=== PATIENT | male | born 1995 | race Asian ===

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

== ENCOUNTER 2017-09-08 21:49 | Inpatient (IN) | payer OTHER ==
[2017-09-08 23:16] LABS: ABS Basophils 0 10^3/ul (0-0.2); ABS Eosinophils 0 10^3/ul (0-0.6); ABS Lymphocytes 1.2 10^3/ul (1.0-4.8); ABS Monocytes 0.5 10^3/ul (0-0.8); ABS Neutrophils 5.8 10^3/ul (1.5-7.7); ABS Nucleated RBC 0 10^3/ul; Eosinophil % 0.4 % (0-6); Hematocrit 45 % (42-52); Hemoglobin 15.2 g/dl (14.0-18.0); Lymphocyte % 15.9 % (25-47); Mean Corpuscular HGB Conc 34 g/dl (31-36); Mean Corpuscular Hemoglobin 31 pg (27-31); Mean Corpuscular Volume 93 fL (80-94); Mean Platelet Volume 8 um3 (7.4-10.4); Nucleated Red Blood Cells % 0; Platelet Count 199 10^3/ul (150-450); Red Blood Count 4.87 10^6/ul (4.0-5.4); Red Cell Distribution Width 15 % (10.5-15); White Blood Count 7.5 10^3/ul (3.5-10.8)
[2017-09-08 23:32] LABS: EGFR Non-African American 104.9 (>60)
--- NOTE | 2017-09-09 01:35 | ED ---
Psychiatric Complaint - HPI Summary HPI Summary: Patient presents to the ED with what he states his chest pain which has since resolved. He states he has a history of bipolar disorder. Denies any homicidal thoughts. Endorses suicidal thoughts most recently "10 minutes ago" but states he denies any currently. He is a poor historian and continues to deflect. He denies any alcohol, drug use, smoking. He has a counselor through [place] and takes lithium daily. He has family at bedside. History of hospitalizations for previous suicidal ideation. Denies any self-harm or attempt. Denies any plan at this time. He appears very anxious and fidgety on physical exam - History Of Current Complaint Hx Obtained From: Patient Onset/Duration: Sudden Onset Timing: Constant Severity Initially: Moderate Severity Currently: Moderate Character: Depressed, Anxious Aggravating Factor(s): Recent Stress Alleviating Factor(s): Medication, Counseling Associated Signs And Symptoms: Positive: Negative, Paranoid Behavior Related History: Positive For: Prior Psychiatric Issues Has Suicidal: Reports: Thoughts - Risk Factor(s) Completed Suicide Risk Factors: Male <Jordyn Liu - Last Filed: 09/09/17 01:30> <Saul Genao - Last Filed: 09/09/17 04:41> - History Of Current Complaint Chief Complaint: EDMentalHealth Time Seen by Provider: 09/08/17 22:22 - Allergies/Home Medications Allergies/Adverse Reactions: Allergies Allergy/AdvReac Type Severity Reaction Status Date / Time Penicillins Allergy Rash Verified 09/08/17 21:55 PMH/Surg Hx/FS Hx/Imm Hx Previously Healthy: Yes Endocrine/Hematology History: Denies: Hx Diabetes Cardiovascular History: Denies: Hx Hypertension, Hx Pacemaker/ICD Respiratory History: Denies: Hx Asthma History: Denies: Hx Renal Disease Sensory History: Reports: Hx Contacts or Glasses Denies: Hx Hearing Aid Opthamlomology History: Reports: Hx Contacts or Glasses Psychiatric History: Reports: Hx Anxiety, Hx of Violent Episodes Against Others Denies: Hx Eating Disorder, Hx Panic Disorder - Immunization History Hx Pertussis Vaccination: No Immunizations Up to Date: Unable to Obtain/Confirm Infectious Disease History: No Infectious Disease History: Denies: Traveled Outside the [place] in Last 30 Days - Family History Known Family History: Negative: Cardiac Disease - Social History Occupation: Unemployed, Student Lives: With Family Alcohol Use: None Hx Substance Use: No Substance Use Type: Reports: None, Prescribed Smoking Status (MU): Never Smoked Tobacco <Jordyn Liu Luther - Last Filed: 09/09/17 01:30> Review of Systems Constitutional: Negative Negative: Fever, Chills, Fatigue Eyes: Negative Cardiovascular: Negative Positive: Chest Pain - since resolved. Negative: Palpitations Negative: Shortness Of Breath, Cough Negative: Abdominal Pain, Vomiting, Diarrhea, Nausea Positive: see HPI. Negative: burning, dysuria Negative: Arthralgia, Myalgia Skin: Negative Negative: Headache, Weakness, Paresthesia Positive: Anxious, Other - bipolar symptoms All Other Systems Reviewed And Are Negative: Yes <Jordyn Liu Luther - Last Filed: 09/09/17 01:30> Physical Exam Triage Information Reviewed: Yes Vital Signs On Initial Exam: Initial Vitals Temp Pulse Resp BP Pulse Ox 99.9 F 94 18 146/89 100 09/08/17 21:55 09/08/17 21:55 09/08/17 21:55 09/08/17 21:55 09/08/17 21:55 Vital Signs Reviewed: Yes Appearance: Positive: Well-Appearing, Well-Nourished Skin: Positive: Warm, Skin Color Reflects Adequate Perfusion Head/Face: Positive: Normal Head/Face Inspection Eyes: Positive: EOMI, CHANDRA, Conjunctiva Clear Neck: Positive: Supple, No Lymphadenopathy Respiratory/Lung Sounds: Positive: Clear to Auscultation, Breath Sounds Present Cardiovascular: Positive: Normal, RRR, Pulses are Symmetrical in both Upper and Lower Extremities Musculoskeletal: Positive: Strength/ROM Intact Neurological: Positive: Normal, Sensory/Motor Intact, Speech Normal Psychiatric: Positive: Anxious - Fidgety and flexing on physical exam <Jordyn Liu Luther - Last Filed: 09/09/17 01:30> Vital Signs On Initial Exam: Initial Vitals Temp Pulse Resp BP Pulse Ox 37.7 C 94 18 146/89 100 09/08/17 21:55 09/08/17 21:55 09/08/17 21:55 09/08/17 21:55 09/08/17 21:55 <Saul Genao - Last Filed: 09/09/17 04:41> Diagnostics - Vital Signs Vital Signs Temp Pulse Resp BP Pulse Ox 02/03/18 21:55 99.9 F 94 18 146/89 100 - Laboratory Lab Results: Lab Results 09/08/17 09/08/17 Range/Units 23:06 23:06 WBC 7.5 (3.5-10.8) 10^3/ul RBC 4.87 (4.0-5.4) 10^6/ul Hgb 15.2 (14.0-18.0) g/dl Hct 45 (42-52) % MCV 93 (80-94) fL MCH 31 (27-31) pg MCHC 34 (31-36) g/dl RDW 15 (10.5-15) % Plt Count 199 (150-450) 10^3/ul MPV 8 (7.4-10.4) um3 Neut % (Auto) 76.5 (38-83) % Lymph % (Auto) 15.9 L (25-47) % Island % (Auto) 6.6 (1-9) % Eos % (Auto) 0.4 (0-6) % Baso % (Auto) 0.6 (0-2) % Absolute Neuts (auto) 5.8 (1.5-7.7) 10^3/ul Absolute Lymphs (auto) 1.2 (1.0-4.8) 10^3/ul Absolute Monos (auto) 0.5 (0-0.8) 10^3/ul Absolute Eos (auto) 0 (0-0.6) 10^3/ul Absolute Basos (auto) 0 (0-0.2) 10^3/ul Absolute Nucleated RBC 0 10^3/ul Nucleated RBC % 0 Sodium 138 (133-145) mmol/L Potassium 3.5 (3.5-5.0) mmol/L Chloride 105 (101-111) mmol/L Carbon Dioxide 24 (22-32) mmol/L Anion Gap 9 (2-11) mmol/L BUN 10 (6-24) mg/dL Creatinine 0.92 (0.67-1.17) mg/dL Est GFR ( Amer) 134.9 (>60) Est GFR (Non-Af Amer) 104.9 (>60) BUN/Creatinine Ratio 10.9 (8-20) Glucose 111 H (70-100) mg/dL Calcium 9.4 (8.6-10.3) mg/dL Total Bilirubin 0.50 (0.2-1.0) mg/dL AST 12 L (13-39) U/L ALT 14 (7-52) U/L Alkaline Phosphatase 75 (34-104) U/L Total Protein 7.3 (6.4-8.9) g/dL Albumin 4.7 (3.2-5.2) g/dL Globulin 2.6 (2-4) g/dL Albumin/Globulin Ratio 1.8 (1-3) TSH 1.62 (0.34-5.60) mcIU/mL Salicylates < 2.50 (<30) mg/dL Acetaminophen < 15 mcg/mL Serum Alcohol < 10 (<10) mg/dL Result Diagrams: 09/08/17 23:06 09/08/17 23:06 Lab Statement: Any lab studies that have been ordered have been reviewed, and results considered in the medical decision making process. <Jordyn Liu - Last Filed: 09/09/17 01:30> - Vital Signs Vital Signs Temp Pulse Resp BP Pulse Ox 09/09/17 03:29 20 09/08/17 21:55 37.7 C 94 18 146/89 100 - Laboratory Lab Results: Lab Results 09/08/17 09/08/17 09/09/17 Range/Units 23:06 23:06 01:25 WBC 7.5 (3.5-10.8) 10^3/ul RBC 4.87 (4.0-5.4) 10^6/ul Hgb 15.2 (14.0-18.0) g/dl Hct 45 (42-52) % MCV 93 (80-94) fL MCH 31 (27-31) pg MCHC 34 (31-36) g/dl RDW 15 (10.5-15) % Plt Count 199 (150-450) 10^3/ul MPV 8 (7.4-10.4) um3 Neut % (Auto) 76.5 (38-83) % Lymph % (Auto) 15.9 L (25-47) % [place] % (Auto) 6.6 (1-9) % Eos % (Auto) 0.4 (0-6) % Baso % (Auto) 0.6 (0-2) % Absolute Neuts (auto) 5.8 (1.5-7.7) 10^3/ul Absolute Lymphs (auto) 1.2 (1.0-4.8) 10^3/ul Absolute Monos (auto) 0.5 (0-0.8) 10^3/ul Absolute Eos (auto) 0 (0-0.6) 10^3/ul Absolute Basos (auto) 0 (0-0.2) 10^3/ul Absolute Nucleated RBC 0 10^3/ul Nucleated RBC % 0 Sodium 138 (133-145) mmol/L Potassium 3.5 (3.5-5.0) mmol/L Chloride 105 (101-111) mmol/L Carbon Dioxide 24 (22-32) mmol/L Anion Gap 9 (2-11) mmol/L BUN 10 (6-24) mg/dL Creatinine 0.92 (0.67-1.17) mg/dL Est GFR ( Amer) 134.9 (>60) Est GFR (Non-Af Amer) 104.9 (>60) BUN/Creatinine Ratio 10.9 (8-20) Glucose 111 H (70-100) mg/dL Calcium 9.4 (8.6-10.3) mg/dL Total Bilirubin 0.50 (0.2-1.0) mg/dL AST 12 L (13-39) U/L ALT 14 (7-52) U/L Alkaline Phosphatase 75 (34-104) U/L Total Protein 7.3 (6.4-8.9) g/dL Albumin 4.7 (3.2-5.2) g/dL Globulin 2.6 (2-4) g/dL Albumin/Globulin Ratio 1.8 (1-3) TSH 1.62 (0.34-5.60) mcIU/mL Urine Color Urine Appearance Urine pH (5-9) Ur Specific [place] (1.010-1.030) Urine Protein (Negative) Urine Ketones (Negative) Urine Blood (Negative) Urine Nitrate (Negative) Urine Bilirubin (Negative) Urine Urobilinogen (Negative) Ur Leukocyte Esterase (Negative) Urine WBC (Auto) (Absent) Urine RBC (Auto) (Absent) Urine Bacteria (Absent) Urine Glucose (Negative) Salicylates < 2.50 (<30) mg/dL Urine Opiates Screen None detected (None Detect) Acetaminophen < 15 mcg/mL Ur Barbiturates Screen None detected (None Detect) Ur Phencyclidine Scrn None detected (None Detect) Ur Amphetamines Screen None detected (None Detect) U Benzodiazepines Scrn None detected (None Detect) [place] 0.20 L (0.6-1.2) mmol/L Urine Cocaine Screen None detected (None Detect) U Cannabinoids Screen None detected (None Detect) Serum Alcohol < 10 (<10) mg/dL 09/09/17 Range/Units 01:25 WBC (3.5-10.8) 10^3/ul RBC (4.0-5.4) 10^6/ul Hgb (14.0-18.0) g/dl Hct (42-52) % MCV (80-94) fL MCH (27-31) pg MCHC (31-36) g/dl RDW (10.5-15) % Plt Count (150-450) 10^3/ul MPV (7.4-10.4) um3 Neut % (Auto) (38-83) % Lymph % (Auto) (25-47) % [place] % (Auto) (1-9) % Eos % (Auto) (0-6) % Baso % (Auto) (0-2) % Absolute Neuts (auto) (1.5-7.7) 10^3/ul Absolute Lymphs (auto) (1.0-4.8) 10^3/ul Absolute Monos (auto) (0-0.8) 10^3/ul Absolute Eos (auto) (0-0.6) 10^3/ul Absolute Basos (auto) (0-0.2) 10^3/ul Absolute Nucleated RBC 10^3/ul Nucleated RBC % Sodium (133-145) mmol/L Potassium (3.5-5.0) mmol/L Chloride (101-111) mmol/L Carbon Dioxide (22-32) mmol/L Anion Gap (2-11) mmol/L BUN (6-24) mg/dL Creatinine (0.67-1.17) mg/dL Est GFR ( Amer) (>60) Est GFR (Non-Af Amer) (>60) BUN/Creatinine Ratio (8-20) Glucose (70-100) mg/dL Calcium (8.6-10.3) mg/dL Total Bilirubin (0.2-1.0) mg/dL AST (13-39) U/L ALT (7-52) U/L Alkaline Phosphatase (34-104) U/L Total Protein (6.4-8.9) g/dL Albumin (3.2-5.2) g/dL Globulin (2-4) g/dL Albumin/Globulin Ratio (1-3) TSH (0.34-5.60) mcIU/mL Urine Color Yellow Urine Appearance Cloudy Urine pH 5.0 (5-9) Ur Specific [place] 1.020 (1.010-1.030) Urine Protein Negative (Negative) Urine Ketones Trace H (Negative) Urine Blood 2+ H (Negative) Urine Nitrate Negative (Negative) Urine Bilirubin Negative (Negative) Urine Urobilinogen Negative (Negative) Ur Leukocyte Esterase Negative (Negative) Urine WBC (Auto) Absent (Absent) Urine RBC (Auto) 1+(3-5/hpf) H (Absent) Urine Bacteria Absent (Absent) Urine Glucose Negative (Negative) Salicylates (<30) mg/dL Urine Opiates Screen (None Detect) Acetaminophen mcg/mL Ur Barbiturates Screen (None Detect) Ur Phencyclidine Scrn (None Detect) Ur Amphetamines Screen (None Detect) U Benzodiazepines Scrn (None Detect) [place] (0.6-1.2) mmol/L Urine Cocaine Screen (None Detect) U Cannabinoids Screen (None Detect) Serum Alcohol (<10) mg/dL Result Diagrams: 09/08/17 23:06 09/08/17 23:06 Lab Statement: Any lab studies that have been ordered have been reviewed, and results considered in the medical decision making process. <Saul Genao - Last Filed: 09/09/17 04:41> Course/Dx - Course Course Of Treatment: Patient is evaluated for chest pain most likely due to an anxiety attack. Patient is asymptomatic currently, but states he had suicidal thoughts approximately 10 minutes ago. Denies any chest pain currently and denies homicidal or suicidal ideations. Denies plan. Family at bedside. He takes lithium daily. He labs and UA obtained and both are unremarkable. He is signed out to Dr. Genao at 2 AM awaiting mental health evaluation. Assessment/Plan: Awaiting MHU evaluation <Jorydn Liu - Last Filed: 09/09/17 01:30> - Course Course Of Treatment: pt accepted for admissino to psychiatric facility for further treatment. MHE appreciated <Saul Genao - Last Filed: 09/09/17 04:41> - Differential Dx/Clinical Impression Provider Diagnosis: Suicidal ideation Discharge <Jordyn Liu - Last Filed: 09/09/17 01:30> <Saul Genao - Last Filed: 09/09/17 04:41> - Discharge Plan Condition: Stable [place] [place]
[2017-09-09 01:47] LABS: Urine Appearance Cloudy; Urine Blood 2+ (Negative); Urine Color Yellow; Urine Ketones Trace (Negative); Urine Protein Negative (Negative); Urine Urobilinogen Negative (Negative)
[2017-09-09] MEDS: LORazepam TAB(*) 1 MG PO PRN (03:29)
[2017-09-09] MEDS ORDERED: Acetaminophen TAB* 325 MG PO PRN (04:05)
[2017-09-09] MEDS ORDERED: Al Hydrox/Mg Hydrox/Simet LIQ* 30 ML UDC PO PRN (04:05)
[2017-09-09] MEDS: Lithium Carbonate TAB* 300 MG PO SCH ×2 (09:18→19:28)
[2017-09-09] MEDS: Vitamin THERAPEUTIC TAB PO SCH (09:18)
--- NOTE | 2017-09-09 19:56 | HP ---
HISTORY AND PHYSICAL: DATE OF ADMISSION: 09/09/17 SOURCE OF INFORMATION: The patient is a poor historian and his mother speaks limited Nigerian. This note is based on review of previous records, admission data, and an interview with the patient. 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 The patient during evaluation presented as disorganized in his thinking and in his behavior and he was admitted on emergency status. CHIEF COMPLAINT: "Severe heart attack!" HISTORY OF PRESENT ILLNESS: The patient relates having diagnosis of bipolar disorder. He had a previous admission here from 10/19/16 to 10/25/16 in a manic state. He was treated with lithium and olanzapine, improved and he was discharged with followup at [facility] with Dr. Janina Varner and he sees Sophie Louis, a therapist in the community. The patient relates that he was doing well until about a week ago when he said he felt "super excited," started sleeping less. He said he felt he could do everything. He thought he was Batman. He had a subjective feeling of his thought racing, of him speaking fast. He said he engaged in spending of money and he became obsessive about his relationship with a female friend from [facility] who is also from [place] and is also a student at [employer]. Over the winter break, he said they grew very close and he assumed they were in a relationship. They were getting along really well. They often spent time together for ice cream, they texted each other constantly and last Sunday he described an interaction with a friend where he asked the friend to go to a concert which would have been today and she replied that she already had a date. He said that left him dumbfounded, crushed and he felt betrayed and he felt like his world was crumbling and at this time he "wanted to ." He said since for the past week, he has not been attending classes regularly and he said this is usually a sign that he is becoming manic again. Yesterday, he complained to his mother who is visiting from [place] that he was having chest pain and he felt that he was probably having heart attack, so his mother again drove him to this hospital with a friend to translate and he was medically evaluated and his symptoms were best explained by anxiety, but he presented as disorganized in his thinking and his behavior, and was as a result given a mental health evaluation and he was admitted on involuntary status. The patient denies that he has ever felt depressed in the past, but he does recall at least 1 previous manic episode last October with insomnia, decreased need for sleep, increased goal directedness, racing thoughts, pressured speech, grandiosity, and involvement in activities with potential for consequences. The patient endorses difficulty with excessive worrying, muscle tension, recurring panic attacks. He denies social anxiety. He denies obsessive thoughts or compulsive rituals. The patient denies substance abuse. PAST PSYCHIATRIC HISTORY: This is his second admission. First admission was here from 10/19/16 to 10/25/16. His outpatient care is at [facility] with Dr. Janina Varner and with therapist, Sophie Louis, in the community. The patient came in on lithium ER 750 mg daily and on Zyprexa 0.625 mg. He explained that Dr. Varner was in the process of weaning him off the olanzapine and had also increased his lithium from 600 to 750 mg daily. SUICIDE/HOMICIDE HISTORY: The patient relates that he has never made any shayy suicide attempt, but around the time of his first admission in the context of relationship not going well, he had thoughts of walking into traffic, but was dissuaded from doing that by a friend. He denies any history of self-injury. Denies any history of violence. PAST MEDICAL HISTORY: He denies any active medical problems, any history of head trauma with loss of consciousness, seizures, or surgeries. ALLERGIES: He is allergic to PENICILLIN. FAMILY HISTORY: The patient denies any family history of psychiatric illnesses or completed suicide. PERSONAL AND SOCIAL HISTORY: He is the only child of Syrian born parents. He lived previously in the from age 6-1/2 to about 11 as his father was doing his at [employer]. His father is a office communication professor in [place] and his mother is a lab teacher at the same university. His mother is here visiting and he believes his father is on his way here. The patient reports a somewhat distant relationship with both his parents, came to [employer] as a freshman to study computer science. He is now a sophomore. He identified as being heterosexual, but denies dating or sexual activity. Relational issues led to this admission. PHYSICAL EXAMINATION GENERAL: He is a thin framed 22-year-old Syrian male, who does not appear to be in any acute physical distress. He is alert, oriented x3. VITAL SIGNS: Admission vital signs; blood pressure is 136/80, pulse is 88, respirations 16, temperature 98.4. HEENT: Head: Atraumatic, normocephalic, symmetrical. Eyes: PERRLA. Tympanic membranes intact. Sclerae anicteric. Conjunctivae clear. NECK: Trachea midline, freely mobile. No cervical lymphadenopathy. No nuchal rigidity. LUNGS: Clear to auscultation bilaterally. HEART: Regular rate and rhythm. S1, S2. No murmurs, gallops, or rubs. BREASTS: No mass or discharge. ABDOMEN: Soft, nontender. No masses, organomegaly, or rebound tenderness. No scars noted. Active bowel sounds in all 4 quadrants. GENITALIA: Exam not performed. RECTAL: Exam not performed. EXTREMITIES: No pain or limitation in the range of movement. Pulses are equal and adequate in all 4 extremities. NEUROLOGIC: Cranial nerves II through XII are intact. Cerebellar function intact. Muscle strength grade 5/5 in all 4 extremities. STRUCTURAL: The patient is examined in both supine and upright positions. No gross AP or lateral asymmetry. Gait and movement are within normal limits. SKIN: Skin texture, turgor, and pigmentation are within normal limits. LABORATORY DATA: On admission, his CBC, complete metabolic panel, urine toxicology screen were within normal limits. Christie level on admission was 0.2. Urinalysis shows trace of protein, 2+ blood, 1+ rbc. MENTAL STATUS EXAMINATION: Finds a thin framed 22-year-old Syrian male with short black hair, who looks younger than stated age. He is adequately groomed, dressed in hospital scrubs. He wears rimmed glasses. He makes fair eye contact. He presents as guarded and superficially cooperative. He complained of difficulty with his memory and often requested his friend to be able to recount recent events. He is noted to be frequently looking over his shoulder and he stops talking when he sees another patient within earshot. He does not exhibit any abnormal psychomotor activity or abnormal movement. Speech is spontaneous, normal rate, rhythm, and volume. He speaks perfect Nigerian without an accent. His speech is not pressured either. He presents as somewhat tangential in his thinking with some grandiose and paranoid delusions. He denies auditory or visual hallucination. He avidly denies suicidal ideation. He endorses passive wish, but he denies active suicidal ideation and he contracts for safety. His insight and judgment are impaired. His impulse control is fair in this setting. He is alert. He is oriented to time, place, person. Attention, memory, and concentration are all poor. Fund of knowledge is adequate. Intelligence is estimated to be in the normal average range. SUMMARY: This is the second inpatient psychiatric admission for this 22-year- old male with history of suicidal ideation, previous diagnosis of bipolar disorder, current outpatient care, who was driven in by his mother to this hospital initially with complaints of anxiety, but on mental health evaluation, he was found to be disorganized in his thinking and his behavior. On interview , he endorses symptoms consistent with surya. He asserts having been compliant with taking his medication, but his lithium level is subtherapeutic at 0.2. He denies any family history of psychiatric illnesses or completed suicide. Stressors include relational issues and academic stress in addition to strained relationships with his parents. DIAGNOSTIC IMPRESSION: 1. Bipolar 1 disorder, manic, severe, with psychotic features. 2. Unspecified anxiety disorder, rule out panic disorder. TREATMENT PLAN: Admit to mental health unit, 15-minute checks, full code status. Legal status is emergency. Initiate comprehensive milieu, individual and group psychotherapeutic support. Medication management will involve increasing the patient's lithium to a more therapeutic range and possibly rethinking the discontinuation of olanzapine given his decompensation was being decreased. Discharge planning will involve coordination of his aftercare with CAT scan and with his therapist in the community. [id number]/[facility] #: [id number] REHANA
[2017-09-10] MEDS: Lithium Carbonate TAB* 300 MG PO SCH ×2 (07:37→22:31)
[2017-09-10] MEDS: Vitamin THERAPEUTIC TAB PO SCH (07:37)
[2017-09-10] MEDS ORDERED: OLANzapine TAB* 2.5 MG PO ONE (13:47)
--- NOTE | 2017-09-10 14:40 | PN ---
Subjective - Subjective Service Type: 79603 Hosp care 25 min moderate complexity Subjective: Patient is religiously preoccupied and tangential. He speaks in monotone and presents with flat affect. He brightens when discussing his major in [employer] and states he likes to "write code" and such. I ask him about restarting olanzapine and he states "I don't knwo what medications work for me because I don't know who to trust." Card Dealer phoned Dr Varner, psychiatrist at [facility] who is out of office today and returns tomorrow. Card Dealer spoke with patient's family friend, Sofia, who serves as welding specialist for parents. She states Estrada was doing well last semester. She states he did not mention multiple recent panic attacks to Dr Varner. She states Estrada's parents are eager to meet with provider and pursue discharge for the patient. Card Dealer encourages her to tell his father to call me or leave his phone number with staff. Objective - Appearance Appearance: Healthy Appearing Dysmorphic Features: No Hygiene: Normal Grooming: Fairly Well Kept - Behavior Psychomotor Activities: Normal Exhibits Abnormal Movement: No - Attitude and Relatedness Attitude and Relatedness: Psychotically Related Eye Contact: Fair - Speech Quality: Unpressured Latencies: Normal Quantity: Terse - Mood Patient's Decription of Mood: "I'm just reading the Bible." - Affect Observed Affect: Expansive Affect Consistent with: Euphoria - Thought Process Patient's Thought Process: Tangential Thought Content: Yes Paranoid Ideation, No Passive Wish, No Suicidal Planning, No Homicidal Ideation - Sensorium Experiencing Hallucinations: No, Sensorium is Clear - denies - Level of Consciousness Level of Consciousness: Alert Orientation: Yes Intact, Yes Orientated to Time, Yes Orientated to Place, Yes Orientated to Person - Impulse Control Impulse Control: Tenuous - Insight and Judgement Insight and Judgement: Poor - Group Participation Particating in Group Activities: No - Medication Management Medication Management Adherence: Yes Assessment - Assessment Merits Inpatient Hospitalization: For Immediate Safety, For Stabilization, Consolidate Improvements, Pending Safe DC Plan Inpatient DSM-IV Dx: unspecified psychotic d/o; Clinical Impression: Second psychiatric hospitalization for 22yo male, sophomore at [employer]. He has been tapering olanzapine and seemingly had a resurgence of psychosis. He merits hospitalization for immediate safety and stabilization. Plan - Plan Treatment Plan: Name: ESTRADA ROSALES Birthdate: 1995 [id number] continue acute intensive psychiatric treatment. Restart olanzapine and continue lithium and lorazepam. obtain lithium level, hgba1c and lipid panel in am. Family meeting scheduled for 09/11 at 3pm for treatment planning. Continued Medication Management: Start Medication Medications: Current Medications Acetaminophen (Tylenol Tab*) 650 mg PO Q4H PRN PRN Reason: PAIN or TEMP > 101 F Al Hydrox/Mg Hydrox/Simethicone (Maalox Plus*) 30 ml PO Q4H PRN PRN Reason: INDIGESTION [place] Carbonate ([place] Carbonate Tab*) 300 mg PO QAM [facility] Last Admin: 09/10/17 07:37 Dose: 300 mg [place] Carbonate ([place] Carbonate Tab*) 450 mg PO BEDTIME [facility] Last Admin: 09/09/17 19:28 Dose: 450 mg Lorazepam (Ativan Tab(*)) 2 mg PO Q6H PRN PRN Reason: ANXIETY/AGITATION Last Admin: 09/09/17 03:29 Dose: 2 mg Multivitamins (Theragran Tab*) 1 tab PO DAILY [facility] Last Admin: 09/10/17 07:37 Dose: 1 tab olanzapine 5mg qhs - Discharge Plan Discharge Plan: Outpatient Follow Up Outpatient Program: Counseling/Psych Services at [place]
[2017-09-10] MEDS ORDERED: OLANzapine TAB* 2.5 MG PO SCH (21:00)
[2017-09-11] MEDS: LORazepam TAB(*) 1 MG PO PRN ×2 (01:40→17:57)
[2017-09-11] MEDS: Vitamin THERAPEUTIC TAB PO SCH (09:18)
[2017-09-11] MEDS: Lithium Carbonate TAB* 300 MG PO SCH ×2 (09:18→20:13)
[2017-09-11] MEDS ORDERED: Lithium Carbonate TAB* 300 MG PO ONE (10:20)
--- NOTE | 2017-09-11 16:20 | PN ---
Subjective - Subjective Service Type: 20275 Hosp care 35 min high complexity Subjective: Scheduling Clerk phoned Dr Varner at [facility] and discussed patient's admission and presentation. She states he c/o weight gain and therefore they attempted slow taper of olanzapine. She agrees with continued treatment with [facility] and suggests Abilify. She also agrees with increase in lithium dose. Family meeting occurred with patient, his parents, local friend/security nurse and BERHANE Lane. Patient reports improved mood and sleep. He explains verbal aggression and hostility from yesterday due to feeling lonely and sad. He is eager to be discharged and tells those present in family meeting that he is at risk for suicide while in the hospital. He states that emotions related to relationships are difficult for him. He also endorses poor sleep habits. Objective - Appearance Appearance: Healthy Appearing Dysmorphic Features: No Hygiene: Normal Grooming: Well Kept - Behavior Psychomotor Activities: Normal Exhibits Abnormal Movement: No - Attitude and Relatedness Attitude and Relatedness: Manipulative Eye Contact: Fair - Speech Quality: Unpressured Latencies: Normal Quantity: Appropriate - Mood Patient's Decription of Mood: "better" - Affect Observed Affect: Constricted Affect Consistent with: Euthymia - Thought Process Patient's Thought Process: Circumstantial Thought Content: No Passive Wish, No Suicidal Planning, No Homicidal Ideation, No Paranoid Ideation - Sensorium Experiencing Hallucinations: No, Sensorium is Clear Type of Hallucinations: Visual: No, Auditory: No, Command: No - Level of Consciousness Level of Consciousness: Alert Orientation: Yes Intact, Yes Orientated to Time, Yes Orientated to Place, Yes Orientated to Person - Impulse Control Impulse Control: Tenuous - Insight and Judgement Insight and Judgement: Fair - Group Participation Particating in Group Activities: Yes - Medication Management Medication Management Adherence: Yes Assessment - Assessment Merits Inpatient Hospitalization: For Immediate Safety, For Stabilization, Consolidate Improvements Inpatient DSM-IV Dx: bipolar I d/o, most recent episode manic Clinical Impression: Second psychiatric hospitalization for 22yo male, sophomore at [employer]. He has been tapering olanzapine and seemingly had a resurgence of psychosis. He merits hospitalization for immediate safety and stabilization. Plan - Plan Treatment Plan: Name: STEVE ROSALES Birthdate: 1995 [id number] continue acute intensive psychiatric treatment. Restart olanzapine and continue lithium and lorazepam. obtain lithium level, hgba1c and lipid panel in am. Family meeting scheduled for 09/11 at 3pm for treatment planning. Continued Medication Management: Different Medication Medications: Current Medications Acetaminophen (Tylenol Tab*) 650 mg PO Q4H PRN PRN Reason: PAIN or TEMP > 101 F Al Hydrox/Mg Hydrox/Simethicone (Maalox Plus*) 30 ml PO Q4H PRN PRN Reason: INDIGESTION Aripiprazole (Abilify Tab*) 5 mg PO BEDTIME [facility] Diphenhydramine HCl (Benadryl Po*) 50 mg PO BEDTIME [facility] [place] Carbonate ([place] Carbonate Tab*) 450 mg PO BEDTIME [facility] Last Admin: 09/10/17 22:31 Dose: 450 mg [place] Carbonate ([place] Carbonate Tab*) 600 mg PO QAM [facility] Lorazepam (Ativan Tab(*)) 2 mg PO Q6H PRN PRN Reason: ANXIETY/AGITATION Last Admin: 09/11/17 01:40 Dose: 2 mg Multivitamins (Theragran Tab*) 1 tab PO DAILY [facility] Last Admin: 09/11/17 09:18 Dose: 1 tab - Discharge Plan Discharge Plan: Outpatient Follow Up Outpatient Program: Counseling/Psych Services at [place]
[2017-09-11] MEDS: diPHENhydraMINE PO* 50 MG PO SCH (20:11)
[2017-09-11] MEDS ORDERED: ARIPiprazole TAB* 5 MG PO SCH (21:00)
[2017-09-12] MEDS: Vitamin THERAPEUTIC TAB PO SCH (08:14)
[2017-09-12] MEDS: Lithium Carbonate TAB* 300 MG PO SCH ×2 (08:14→20:20)
[2017-09-12] MEDS: LORazepam TAB(*) 1 MG PO PRN (08:29)
[2017-09-12] MEDS: ARIPiprazole TAB* 5 MG PO SCH ×2 (12:04→20:20)
--- NOTE | 2017-09-12 13:23 | PN ---
Subjective - Subjective Service Type: 03610 Hosp care 25 min moderate complexity Subjective: Patient reports improved mood and sleep. He continues to exhibit disorganized thinking and obsession about relationships. His parents report he does not appear baseline as of yet. Patient agrees to increase in abilify. He is utilizing lorazepam often and reports this is efficacious. Objective - Appearance Appearance: Healthy Appearing Dysmorphic Features: No Hygiene: Normal Grooming: Well Kept - Behavior Psychomotor Activities: Normal Exhibits Abnormal Movement: No - Attitude and Relatedness Attitude and Relatedness: Cooperative Eye Contact: Fair - Speech Quality: Unpressured Latencies: Normal Quantity: Appropriate - Mood Patient's Decription of Mood: "Okay" - Affect Observed Affect: Constricted Affect Consistent with: Euthymia - Thought Process Patient's Thought Process: Tangential, Circumstantial Thought Content: No Passive Wish, No Suicidal Planning, No Homicidal Ideation, No Paranoid Ideation - Sensorium Experiencing Hallucinations: No, Sensorium is Clear Type of Hallucinations: Visual: No, Auditory: No, Command: No - Level of Consciousness Level of Consciousness: Alert Orientation: Yes Intact, Yes Orientated to Time, Yes Orientated to Place, Yes Orientated to Person - Impulse Control Impulse Control: Tenuous - Insight and Judgement Insight and Judgement: Poor - Group Participation Particating in Group Activities: Yes - Medication Management Medication Management Adherence: Yes Assessment - Assessment Merits Inpatient Hospitalization: For Immediate Safety, For Stabilization, Consolidate Improvements, Pending Safe DC Plan Inpatient DSM-IV Dx: bipolar I d/o, most recent episode manic Clinical Impression: Second psychiatric hospitalization for 22yo male, sophomore at [employer]. He has been tapering olanzapine and seemingly had a resurgence of psychosis. He merits hospitalization for immediate safety and stabilization. Plan - Plan Treatment Plan: Name: STEVE ROSALES Birthdate: 1995 [id number] continue acute intensive psychiatric treatment. olanzapine changed to aripiprazole, titration continues. Continued Medication Management: Different Medication Medications: Current Medications Acetaminophen (Tylenol Tab*) 650 mg PO Q4H PRN PRN Reason: PAIN or TEMP > 101 F Last Admin: 09/11/17 17:46 Dose: 650 mg Al Hydrox/Mg Hydrox/Simethicone (Maalox Plus*) 30 ml PO Q4H PRN PRN Reason: INDIGESTION Aripiprazole (Abilify Tab*) 5 mg PO BID [facility] Last Admin: 09/12/17 12:04 Dose: 5 mg Diphenhydramine HCl (Benadryl Po*) 50 mg PO BEDTIME [facility] Last Admin: 09/11/17 20:11 Dose: 50 mg [place] Carbonate ([place] Carbonate Tab*) 450 mg PO BEDTIME [facility] Last Admin: 09/11/17 20:13 Dose: 450 mg [place] Carbonate ([place] Carbonate Tab*) 600 mg PO QAM [facility] Last Admin: 09/12/17 08:14 Dose: 600 mg Lorazepam (Ativan Tab(*)) 2 mg PO Q6H PRN PRN Reason: ANXIETY/AGITATION Last Admin: 09/12/17 08:29 Dose: 2 mg Multivitamins (Theragran Tab*) 1 tab PO DAILY [facility] Last Admin: 09/12/17 08:14 Dose: 1 tab - Discharge Plan Discharge Plan: Outpatient Follow Up Outpatient Program: Counseling/Psych Services at [place]
[2017-09-12] MEDS: diPHENhydraMINE PO* 50 MG PO SCH (20:20)
[2017-09-13] MEDS: ARIPiprazole TAB* 5 MG PO SCH ×3 (08:59→20:37)
[2017-09-13] MEDS: Vitamin THERAPEUTIC TAB PO SCH (09:00)
[2017-09-13] MEDS: Lithium Carbonate TAB* 300 MG PO SCH ×2 (09:00→20:37)
--- NOTE | 2017-09-13 11:48 | PN ---
MHU: Group Therapy Note - Service Type Service Type: 93093 Group Psychotherapy - Cognitive Behavioral Group Therapy ( CBT):Patient attended CBT programming this morning and presented with flat affect that did not vary with discussion. Although responsive to direct prompts to respond to questions, patient did not engage in spontaneous conversation.
--- NOTE | 2017-09-13 12:31 | PN ---
Subjective - Subjective Service Type: 89756 Hosp care 15 min low complexity Subjective: Patient continues to exhibit disorganized behavior. He asked staff to use his cell phone to obtain numbers and while doing so, phoned 911. He told dispatch that he did not feel safe. Today, patient explains that he was "scared" and that is afraid because he does not know the staff here. He goes on to describe this is related to not being an extrovert and that he is from [place]. He states he often receives "random thoughts from the Bible. " Parents visited and given update on plan of care to continue to treat and titrate medications. Objective - Appearance Appearance: Well Developed/Nourished Dysmorphic Features: No Hygiene: Normal Grooming: Well Kept - Behavior Psychomotor Activities: Normal Exhibits Abnormal Movement: No - Attitude and Relatedness Attitude and Relatedness: Psychotically Related Eye Contact: Fair - Speech Quality: Unpressured Quantity: Appropriate - Mood Patient's Decription of Mood: "scared" - Affect Observed Affect: Expansive Affect Consistent with: Euphoria - Thought Process Patient's Thought Process: Disorganized, Tangential Thought Content: Yes Paranoid Ideation, No Passive Wish, No Suicidal Planning, No Homicidal Ideation - Sensorium Experiencing Hallucinations: No, Sensorium is Clear Type of Hallucinations: Visual: No, Auditory: No, Command: No - Level of Consciousness Level of Consciousness: Alert Orientation: Yes Intact, Yes Orientated to Time, Yes Orientated to Place, Yes Orientated to Person - Impulse Control Impulse Control: Poor - Insight and Judgement Insight and Judgement: Poor - Group Participation Particating in Group Activities: Yes - Medication Management Medication Management Adherence: Yes Assessment - Assessment Merits Inpatient Hospitalization: For Immediate Safety, For Stabilization, Consolidate Improvements, For Discharge Planning Inpatient DSM-IV Dx: bipolar I d/o, most recent episode manic Clinical Impression: Second psychiatric hospitalization for 22yo male, sophomore at [employer]. He has been tapering olanzapine and seemingly had a resurgence of psychosis. He merits hospitalization for immediate safety and stabilization. Plan - Plan Treatment Plan: Name: STEVE ROSALES Birthdate: 1995 [id number] continue acute intensive psychiatric treatment. olanzapine changed to aripiprazole, titration continues. Continued Medication Management: Different Medication Medications: Current Medications Acetaminophen (Tylenol Tab*) 650 mg PO Q4H PRN PRN Reason: PAIN or TEMP > 101 F Last Admin: 09/11/17 17:46 Dose: 650 mg Al Hydrox/Mg Hydrox/Simethicone (Maalox Plus*) 30 ml PO Q4H PRN PRN Reason: INDIGESTION Aripiprazole (Abilify Tab*) 5 mg PO TID [facility] Diphenhydramine HCl (Benadryl Po*) 50 mg PO BEDTIME [facility] Last Admin: 09/12/17 20:20 Dose: 50 mg [place] Carbonate ([place] Carbonate Tab*) 450 mg PO BEDTIME [facility] Last Admin: 09/12/17 20:20 Dose: 450 mg [place] Carbonate ([place] Carbonate Tab*) 600 mg PO QAM [facility] Last Admin: 09/13/17 09:00 Dose: 600 mg Lorazepam (Ativan Tab(*)) 2 mg PO Q6H PRN PRN Reason: ANXIETY/AGITATION Last Admin: 09/12/17 08:29 Dose: 2 mg Multivitamins (Theragran Tab*) 1 tab PO DAILY [facility] Last Admin: 09/13/17 09:00 Dose: 1 tab - Discharge Plan Discharge Plan: Outpatient Follow Up Outpatient Program: Counseling/Psych Services at [place]
--- NOTE | 2017-09-13 16:39 | PN ---
MHU: Group Therapy Note - Service Type Service Type: [id number] Group Psychotherapy - Medication Education Group: Patient attended group and presented with flat affect that did not vary with discussion. Patient noted to be circumstantial about substances that were not particularly on topic.
[2017-09-13] MEDS: diPHENhydraMINE PO* 50 MG PO SCH (20:37)
[2017-09-14] MEDS: ARIPiprazole TAB* 5 MG PO SCH ×3 (08:22→21:43)
[2017-09-14] MEDS: Lithium Carbonate TAB* 300 MG PO SCH ×2 (08:22→21:42)
[2017-09-14] MEDS: Vitamin THERAPEUTIC TAB PO SCH (08:22)
--- NOTE | 2017-09-14 11:46 | PN ---
MHU: Group Therapy Note - Service Type Service Type: [id number] Group Psychotherapy - Cognitive Behavioral Group Therapy ( CBT):Patient was attentive and participatory in CBT programming this morning, and remained in good behavioral control. Patient expressed positive insights regarding relevant treatment interventions and goals.
--- NOTE | 2017-09-14 17:13 | PN ---
Subjective - Subjective Service Type: 72699 Hosp care 25 min moderate complexity Subjective: Patient continues to exhibit disorganized thinking. He is paranoid of staff and their ID badges. He reports feeling watched by staff and the hospital logo. His parents are present during visiting hours and supportive of continued hospitalization for stabilization. They inquire about need for medical leave from [facility] and signwriter suggests to involve outpatient psychiatrist. Collaboration with Dr Varner. Notified of medication changes and treatment planning. She agrees that medical leave is likely preemptive at this time and patient will likely be able to stabilize and return to academic program. She suggested continued involvement with [facility] crisis management. Objective - Appearance Appearance: Well Developed/Nourished, Healthy Appearing Dysmorphic Features: No Hygiene: Normal Grooming: Well Kept - Behavior Psychomotor Activities: Normal Exhibits Abnormal Movement: No - Attitude and Relatedness Attitude and Relatedness: Superficially Cooperative Eye Contact: Good - Speech Quality: Unpressured Latencies: Normal Quantity: Appropriate - Mood Patient's Decription of Mood: "Good" - Affect Observed Affect: Constricted Affect Consistent with: Euthymia - Thought Process Patient's Thought Process: Disorganized Thought Content: Yes Paranoid Ideation, No Passive Wish, No Suicidal Planning, No Homicidal Ideation - Sensorium Experiencing Hallucinations: No, Sensorium is Clear Type of Hallucinations: Visual: No, Auditory: No, Command: No - Level of Consciousness Level of Consciousness: Alert Orientation: Yes Intact, Yes Orientated to Time, Yes Orientated to Place, Yes Orientated to Person - Impulse Control Impulse Control: Tenuous - Insight and Judgement Insight and Judgement: Poor - Group Participation Particating in Group Activities: No - Medication Management Medication Management Adherence: Yes Assessment - Assessment Merits Inpatient Hospitalization: For Immediate Safety, For Stabilization, Consolidate Improvements, Pending Safe DC Plan Inpatient DSM-IV Dx: bipolar I d/o, most recent episode manic Clinical Impression: Second psychiatric hospitalization for 22yo male, sophomore at [employer]. He has been tapering olanzapine and seemingly had a resurgence of psychosis. He merits hospitalization for immediate safety and stabilization. Plan - Plan Treatment Plan: Name: STEVE ROSALES Birthdate: 1995 [id number] continue acute intensive psychiatric treatment. olanzapine changed to aripiprazole, titration continues. Continued Medication Management: Different Medication Medications: Current Medications Acetaminophen (Tylenol Tab*) 650 mg PO Q4H PRN PRN Reason: PAIN or TEMP > 101 F Last Admin: 09/11/17 17:46 Dose: 650 mg Al Hydrox/Mg Hydrox/Simethicone (Maalox Plus*) 30 ml PO Q4H PRN PRN Reason: INDIGESTION Aripiprazole (Abilify Tab*) 5 mg PO TID [facility] Last Admin: 09/14/17 13:43 Dose: 5 mg Diphenhydramine HCl (Benadryl Po*) 50 mg PO BEDTIME [facility] Last Admin: 09/13/17 20:37 Dose: [address] [place] Carbonate ([place] Carbonate Tab*) 450 mg PO BEDTIME [facility] Last Admin: 09/13/17 20:37 Dose: [address] [place] Carbonate ([place] Carbonate Tab*) 600 mg PO QAM [facility] Last Admin: 09/14/17 08:22 Dose: 600 mg Lorazepam (Ativan Tab(*)) 2 mg PO Q6H PRN PRN Reason: ANXIETY/AGITATION Last Admin: 09/12/17 08:29 Dose: 2 mg Multivitamins (Theragran Tab*) 1 tab PO DAILY [facility] Last Admin: 09/14/17 08:22 Dose: 1 tab - Discharge Plan Discharge Plan: Outpatient Follow Up Outpatient Program: Counseling/Psych Services at [place]
[2017-09-14] MEDS: LORazepam TAB(*) 1 MG PO PRN (17:48)
[2017-09-14] MEDS: diPHENhydraMINE PO* 50 MG PO SCH (21:43)
[2017-09-15] MEDS: Lithium Carbonate TAB* 300 MG PO SCH ×2 (08:10→20:02)
[2017-09-15] MEDS: ARIPiprazole TAB* 5 MG PO SCH ×3 (08:10→20:02)
[2017-09-15] MEDS: Vitamin THERAPEUTIC TAB PO SCH (08:10)
[2017-09-15] MEDS: LORazepam TAB(*) 1 MG PO PRN (20:02)
[2017-09-15] MEDS: diPHENhydraMINE PO* 50 MG PO SCH (20:03)
[2017-09-16] MEDS: ARIPiprazole TAB* 5 MG PO SCH ×3 (07:52→20:07)
[2017-09-16] MEDS: Lithium Carbonate TAB* 300 MG PO SCH ×2 (07:52→20:08)
[2017-09-16] MEDS: Vitamin THERAPEUTIC TAB PO SCH (07:52)
--- NOTE | 2017-09-16 18:29 | PN ---
Subjective - Subjective Date of Service: 09/16/17 Service Type: 92460 Hosp care 15 min low complexity Subjective: Reports of feeling tired and sedated from his meds but he thinks meds are helping with psychosis. Denies hallucinations, delusions or SI/HI. Staying to self mostly. Objective - Appearance Appearance: Healthy Appearing Dysmorphic Features: No Hygiene: Normal Grooming: Well Kept - Behavior Psychomotor Activities: Normal Exhibits Abnormal Movement: No - Attitude and Relatedness Attitude and Relatedness: Appropriate Eye Contact: Good - Speech Quality: Unpressured Latencies: Normal Quantity: Appropriate - Mood Patient's Decription of Mood: "Good" - Affect Observed Affect: Non-labile - Thought Process Thought Content: No Passive Wish, No Suicidal Planning, No Homicidal Ideation, No Paranoid Ideation - Sensorium Experiencing Hallucinations: No, Sensorium is Clear Type of Hallucinations: Visual: No, Auditory: No, Command: No - Level of Consciousness Level of Consciousness: Alert Orientation: Yes Intact, Yes Orientated to Time, Yes Orientated to Place, Yes Orientated to Person - Impulse Control Impulse Control: Intact - Insight and Judgement Insight and Judgement: Fair - Group Participation Particating in Group Activities: No - Medication Management Medication Management Adherence: Yes Assessment - Assessment Merits Inpatient Hospitalization: For Stabilization, For Discharge Planning Inpatient DSM-IV Dx: bipolar I d/o, most recent episode manic Plan - Plan Treatment Plan: Name: STEVE ROSALES Birthdate: 1995 [id number] Continued Medication Management: Continue Outpt Medication Medications: Current Medications Acetaminophen (Tylenol Tab*) 650 mg PO Q4H PRN PRN Reason: PAIN or TEMP > 101 F Last Admin: 09/11/17 17:46 Dose: 650 mg Al Hydrox/Mg Hydrox/Simethicone (Maalox Plus*) 30 ml PO Q4H PRN PRN Reason: INDIGESTION Aripiprazole (Abilify Tab*) 5 mg PO TID [facility] Last Admin: 09/16/17 13:12 Dose: 5 mg Diphenhydramine HCl (Benadryl Po*) 50 mg PO BEDTIME [facility] Last Admin: 09/15/17 20:03 Dose: 50 mg [place] Carbonate ([place] Carbonate Tab*) 450 mg PO BEDTIME [facility] Last Admin: 09/15/17 20:02 Dose: 450 mg [place] Carbonate ([place] Carbonate Tab*) 600 mg PO QAM [facility] Last Admin: 09/16/17 07:52 Dose: 600 mg Lorazepam (Ativan Tab(*)) 2 mg PO Q6H PRN PRN Reason: ANXIETY/AGITATION Last Admin: 09/15/17 20:02 Dose: 2 mg Multivitamins (Theragran Tab*) 1 tab PO DAILY [facility] Last Admin: 09/16/17 07:52 Dose: 1 tab - Discharge Plan Discharge Plan: Outpatient Follow Up Outpatient Program: Counseling/Psych Services at [place]
[2017-09-16] MEDS: diPHENhydraMINE PO* 50 MG PO SCH (20:07)
[2017-09-17] MEDS: ARIPiprazole TAB* 5 MG PO SCH ×2 (08:19→13:05)
[2017-09-17] MEDS: Vitamin THERAPEUTIC TAB PO SCH (08:19)
[2017-09-17] MEDS: Lithium Carbonate TAB* 300 MG PO SCH (08:19)
[2017-09-17 09:06] VITALS: BP 122/75
== END 2017-09-17 15:55 | disposition home or self-care (01) | DRG 885 ==
LOC: ED 21:49 → BSU 09-09 03:57
PROVIDERS: ADMIT Psychiatry & Neurology Psychiatry; ATTEND Psychiatry & Neurology Psychiatry
DX: F31.2 Bipolar disorder, current episode manic severe with psychotic features (principal); Z88.0 Allergy status to penicillin
CPT/HCPCS: 36415; 80053; 80061; 80178; 80307; 80320; 80329; 81003; 81015; 82306; 83036; 84443; 85025; 90853; 99222; 99231; 99232; 99233; 99238; 99285; A9270-GY; G0480